=== PATIENT | male | born 1995 | race Native Hawaiian/Other Pacific Islander ===

== ENCOUNTER 2020-12-07 07:18 | Day surgery (SDC) | payer OTHER ==
[~2020-12-07] VITALS: Ht 180.3 cm; Wt 62.6 kg
[2020-12-07 08:46] LABS: ALBUMIN 4.3 g/dL (3.4-5.0); CARBON DIOXIDE 30.7 mmol/L (21-32); CREATININE 0.9 mg/dL (0.6-1.3); POTASSIUM 3.7 mmol/L (3.5-5.1); TOTAL BILIRUBIN 0.3 mg/dL (0.0-1.0)
[2020-12-07] MEDS ORDERED: PROPOFOL 200 MG/20 ML VIAL IV ONE (09:13)
== END 2020-12-07 10:25 | disposition home or self-care (01) ==
LOC: MDS 07:18 → MMU 07:24 → MDS 10:25
PROVIDERS: ATTEND Internal Medicine Gastroenterology
DX: K21.9 Gastro-esophageal reflux disease without esophagitis (principal); F41.9 Anxiety disorder, unspecified; F32.9 Major depressive disorder, single episode, unspecified; Z88.0 Allergy status to penicillin; Z79.899 Other long term (current) drug therapy
CPT/HCPCS: 36415; 43239; 71045; 80053; J2704; J7120